=== PATIENT | male | born 1975 | race Caucasian/White ===

== ENCOUNTER 2016-09-14 08:25 | Emergency (ER) | payer OTHER ==
[~2016-09-14] VITALS: Ht 182.9 cm; Wt 126.0 kg
[2016-09-14 08:32] VITALS: BP_SYST 162; BP_DIAS 112; BP_DIAS 114; PULSE 70; RESP 16; TEMP 97.9; O2SAT 96
[2016-09-14 08:44] VITALS: BP 162/112; PULSE 70; RESP 16; TEMP 97.9; O2SAT 96
[2016-09-14] MEDS ORDERED: BLOOD PRESSURE (08:49)
[2016-09-14] MEDS ORDERED: CEPH-460 PO (08:54)
--- NOTE | 2016-09-14 08:54 | PD ---
HPI . Blister Chief Complaint: Skin Problem Time Seen by Provider: 08:50 Travel History International Travel<30 days: No Contact w/Intl Traveler<30days: No Traveled to known affect area: No History of Present Illness HPI Patient presents with a blister on the plantar aspect of the left foot. This been there for about 3 or 4 days. [place] got [place] Been treating it with Neosporin. He presents to us today because it has become more tender and erythematous. PFSH Past Medical History Diminished Hearing: No Hypertension: Yes Tetanus Vaccination: Unknown Influenza Vaccination: No Past Surgical History Surgical History: No Previous Surgery Social History Alcohol Use: Yes Tobacco Use: No Substance Use: No Allergies-Medications (Allergen,Severity, Reaction): Coded Allergies: No Known Allergies (Unverified , 09/14/16) Reported Meds & Prescriptions Reported Meds & Active Scripts Active Reported [Blood Pressure] Review of Systems Except as stated in HPI: all other systems reviewed are Neg General / Constitutional: No: Fever Skin: Positive Lesions Physical Exam Narrative GENERAL: Awake and alert and in no acute distress. SKIN: Warm and dry. He has an intact blister on the plantar aspect of the left foot, midfoot area. It is 3 cm in diameter. It does have some erythema around the blister. And it is tender to the touch. HEAD: Atraumatic. Normocephalic. EYES: Pupils equal and round. NECK: Trachea midline. CARDIOVASCULAR: Regular rate and rhythm. RESPIRATORY: No accessory muscle use. MUSCULOSKELETAL: No obvious deformities. No edema. NEUROLOGICAL: Awake and alert. No obvious cranial nerve deficits. Motor grossly within normal limits. Normal speech. PSYCHIATRIC: Appropriate mood and affect; insight and judgment normal. Data Data Last Documented VS Vital Signs Date Time Temp Pulse Resp B/P Pulse Ox O2 Delivery O2 Flow Rate FiO2 09/14/16 08:44 97.9 70 16 162/112 96 MDM Medical Decision Making Medical Screen Exam Complete: Yes Emergency Medical Condition: Yes Differential Diagnosis Differential diagnosis includes but is not limited to blister, cellulitis, abscess Narrative Course Patient presents with a blister on the plantar aspect of his left foot from walking in the sand. It does look like it may have become infected. It is erythematous and tender. Procedures Procedure Narrative The necrotic blister was removed using forceps and scissors. Underlying tissue is beefy red with no purulent drainage. Diagnosis Primary Impression: Blister Additional Impression: Cellulitis Qualified Code: L03.116 - Cellulitis of left lower extremity Additional Instructions: Wash the wound at least twice daily and whenever it becomes soiled. Apply thin layer of antibiotic ointment. Light dressing. Med/Other Pt SpecificInfo: Prescription(s) given Scripts Cephalexin (Keflex)500 Mg [id number] Mg PO Q8H #30 CAP Ref 0 Prov:Claire Galaviz MD 09/14/16 Disposition: 01 DISCHARGE HOME Condition: Stable Claire Galaviz MD Sep 14, 2016 08:54
== END 2016-09-14 09:26 | disposition home or self-care (01) ==
LOC: PHED 08:25
DX: S90.822A Blister (nonthermal), left foot, initial encounter (principal); L03.116 Cellulitis of left lower limb; I10 Essential (primary) hypertension; Y93.01 Activity, walking, marching and hiking
CPT/HCPCS: 11000